=== PATIENT | male | born 1985 | race American Indian/Alaskan Native ===

== ENCOUNTER 2017-05-28 11:23 | Emergency (ER) | payer SELFPAY ==
[2017-05-28 12:14] VITALS: BP 141/96
--- NOTE | 2017-05-28 13:22 | Emergency Department Report ---
ED Chest Pain HPI - General Chief Complaint: Chest Pain Stated Complaint: CP Time Seen by Provider: 05/28/17 13:09 Source: patient Mode of arrival: Ambulatory Limitations: No Limitations - History of Present Illness Initial Comments: Patient is a 31-year-old [place] male who is coming in with chest pain. Patient states he has some slight heaviness to the chest with findings anxious feelings palpitations shortness of breath. Patient states this has been present for 2 days constant bleed. Patient states he is going through a stressful situation and this has a lot on his mind. Patient tried to go to work today but had to leave because of these feelings. Patient is denying any nausea vomiting diarrhea headache cough and pleuritic chest pain at this time. Patient states the pain is not exertional. Patient states he does not have any risk factors for heart disease he denies having diabetes hypertension and high cholesterol or family history of heart disease. Patient does state he does smoke cigarettes occasionally however. - Related Data Previous Rx's Medication Instructions Recorded Last Taken Type ALPRAZolam [Xanax TAB] 0.25 mg PO BID PRN #6 tab 05/28/17 Unknown Rx Allergies Allergy/AdvReac Type Severity Reaction Status Date / Time No Known Allergies Allergy Unverified 05/28/17 12:11 Heart Score - HEART Score History: Slightly suspicious EKG: Normal Age: < 45 Risk factors: No known risk factors Troponin: < normal limit HEART Score: 0 ED Review of Systems ROS: Stated complaint: CP Other details as noted in HPI Comment: All other systems reviewed and negative ED Past Medical Hx - Past Medical History Previous Medical History?: No - Surgical History Past Surgical History?: No - Social History Smoking Status: Current Every Day Smoker Substance Use Type: Alcohol, Marijuana - Medications Home Medications: Home Medications Medication Instructions Recorded Confirmed Last Taken Type ALPRAZolam [Xanax TAB] 0.25 mg PO BID PRN #6 tab 05/28/17 Unknown Rx ED Physical Exam - General Limitations: No Limitations General appearance: alert, in no apparent distress - Head Head exam: Present: atraumatic, normocephalic - Eye Eye exam: Present: normal appearance - ENT ENT exam: Present: mucous membranes moist - Neck Neck exam: Present: normal inspection - Respiratory Respiratory exam: Present: normal lung sounds bilaterally. Absent: respiratory distress - Cardiovascular Cardiovascular Exam: Present: regular rate, normal rhythm. Absent: systolic murmur, diastolic murmur, rubs, gallop - GI/Abdominal GI/Abdominal exam: Present: soft, normal bowel sounds - Rectal Rectal exam: Present: deferred - Extremities Exam Extremities exam: Present: normal inspection - Back Exam Back exam: Present: normal inspection - Neurological Exam Neurological exam: Present: alert, oriented X3 - Psychiatric Psychiatric exam: Present: normal affect, normal mood - Skin Skin exam: Present: warm, dry, intact, normal color. Absent: rash ED Course Vital Signs 05/28/17 12:11 Temperature 98.2 F Pulse Rate 92 H Respiratory 18 Rate Blood Pressure 141/96 O2 Sat by Pulse 99 Oximetry ED Medical Decision Making - EKG Data -: EKG Interpreted by Me EKG shows normal: sinus rhythm, axis, intervals, QRS complexes, ST-T waves Rate: normal - EKG Data Interpretation: normal EKG - Medical Decision Making The patient has very few risk factors for coronary disease. Patient's EKG is within normal limits. Patient will be given 6 Xanax for anxious symptoms and will be referred to primary care. Critical care attestation.: If time is entered above; I have spent that time in minutes in the direct care of this critically ill patient, excluding procedure time. ED Disposition Clinical Impression: Anxiety reaction Disposition: DC-01 TO HOME OR SELFCARE Is pt being admited?: No Does the pt Need Aspirin: No Condition: Stable Instructions: Stress (ED) Prescriptions: ALPRAZolam [Xanax TAB] 0.25 mg PO BID PRN #6 tab PRN Reason: Anxiety Referrals: MURIEL HERNANDEZ MD [Staff Physician] - 3-5 Days
== END 2017-05-28 13:30 | disposition home or self-care (01) ==
LOC: ED 11:23
DX: F41.1 Generalized anxiety disorder (principal); F12.10 Cannabis abuse, uncomplicated; F17.210 Nicotine dependence, cigarettes, uncomplicated
CPT/HCPCS: 93005; 93010; 99282